=== PATIENT | male | born 1960 | race Caucasian/White ===

== ENCOUNTER 2018-04-05 14:02 | Emergency (ER) | payer BC ==
[2018-04-05] MEDS ORDERED: DIPH/PERTUSS(ACELL)/TETANUS VAC/PF 0.5 ML SYR (>=10YO) IM ONE (14:49)
[2018-04-05] MEDS ORDERED: NORMAL SALINE 1000 ML 1,000 ML IV ONE (14:49)
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
[2018-04-05 15:34] LABS: ABSOLUTE LYMPHOCYTES (AUTO) 1.2 10^3/uL (0.5-4.7); ABSOLUTE MONOCYTES (AUTO) 0.6 10^3/uL (0.1-1.4); ABSOLUTE NEUT (AUTO) 4.3 10^3/uL (1.7-8.2); BASOPHILS % (AUTO) 0.1 % (0-2); EOSINOPHILS % (AUTO) 0.4 % (0-6); HEMATOCRIT 45.1 % (37.9-51.0); HEMOGLOBIN 15.5 g/dL (13.5-17.0); LYMPHOCYTES % (AUTO) 19.2 % (13-45); MEAN CORPUSCULAR HEMOGLOBIN 31.8 pg (27.0-33.4); MEAN CORPUSCULAR HGB CONC 34.4 g/dL (32.0-36.0); MEAN CORPUSCULAR VOLUME 93 fl (80-97); MONOCYTES % (AUTO) 10.4 % (3-13); PLATELET COUNT 144 10^3/uL (150-450); RED BLOOD COUNT 4.87 10^6/uL (4.35-5.55); RED CELL DISTRIBUTION WIDTH 13.1 % (11.5-14.0); SEGMENTED NEUTROPHILS % (AUTO) 69.9 % (42-78); TOTAL CELLS COUNTED % (AUTO) 100 %; WHITE BLOOD COUNT 6.2 10^3/uL (4.0-10.5)
[2018-04-05 15:58] LABS: ALANINE AMINOTRANSFERASE 54 U/L (21-72); ALBUMIN 4.1 g/dL (3.5-5.0); ALKALINE PHOSPHATASE 66 U/L (38-126); ANION GAP 11 (5-19); ASPARTATE AMINO TRANSFERASE 39 U/L (17-59); BILIRUBIN,DIRECT 0.3 mg/dL (0.0-0.4); BILIRUBIN,TOTAL 0.6 mg/dL (0.2-1.3); BLOOD UREA NITROGEN 16 mg/dL (7-20); CALCIUM 9.4 mg/dL (8.4-10.2); CARBON DIOXIDE 25 mmol/L (22-30); CHLORIDE 107 mmol/L (98-107); GLUCOSE 94 mg/dL (75-110); POTASSIUM 3.9 mmol/L (3.6-5.0); TOTAL PROTEIN 6.7 g/dL (6.3-8.2)
[2018-04-05 17:08] VITALS: BP 122/80
--- NOTE | 2018-04-06 08:23 | EKG REPORT ---
SEVERITY:- ABNORMAL ECG - SINUS RHYTHM PROBABLE ANTEROSEPTAL INFARCT, OLD : Confirmed by: Anne Garrido 06-Apr-2018 08:21:50
== END 2018-04-05 16:50 | disposition home or self-care (01) ==
LOC: ER 14:02
DX: S61.216A Laceration without foreign body of right little finger without damage to nail, initial encounter (principal); W45.8XXA Other foreign body or object entering through skin, initial encounter; Y93.89 Activity, other specified; R55 Syncope and collapse; R53.1 Weakness; R61 Generalized hyperhidrosis; K08.89 Other specified disorders of teeth and supporting structures; Z86.14 Personal history of Methicillin resistant Staphylococcus aureus infection; Z23 Encounter for immunization
CPT/HCPCS: 93005; 99283; 96360; 90471; 36415; 82962; 85025; 80053; 84484; 90715; 93010; J7030

== ENCOUNTER → 2019-07-28 | Outpatient (CLI) | payer BC ==
--- NOTE | 2019-07-28 16:28 | RADIOLOGY REPORT (SQ) ---
EXAM DESCRIPTION: CHEST PA/LATERAL COMPLETED DATE/TIME: 07/28/2019 3:46 pm REASON FOR STUDY: COUGH COMPARISON: None. EXAM PARAMETERS: NUMBER OF VIEWS: two views TECHNIQUE: Digital Frontal and Lateral radiographic views of the chest acquired. RADIATION DOSE: NA LIMITATIONS: none FINDINGS: LUNGS AND PLEURA: Mild thickening of the bronchial richter in the right infrahilar region, suggest bronchiectasis. No acute pulmonary consolidation. The left lung is clear. No pneumothorax or pleural effusion. MEDIASTINUM AND HILAR STRUCTURES: No masses or contour abnormalities. HEART AND VASCULAR STRUCTURES: Heart normal size. No evidence for failure. BONES: No acute findings. HARDWARE: None in the chest. OTHER: No other significant finding. IMPRESSION: 1. Mild bronchiectatic changes are suggested in the right infrahilar region. No acute pulmonary consolidation. TECHNICAL DOCUMENTATION: JOB ID: [id number] [employer]- All Rights Reserved Reading location - IP/workstation name: [email or web address]
== END ==
LOC: OD 15:38
PROVIDERS: ATTEND Internal Medicine
DX: R05 Cough (principal)
CPT/HCPCS: 71046

== ENCOUNTER → 2019-09-02 | Outpatient (CLI) | payer BC ==
--- NOTE | 2019-09-02 10:32 | RADIOLOGY REPORT (SQ) ---
EXAM DESCRIPTION: CT CHEST WITH COMPLETED DATE/TIME: 09/02/2019 8:00 am REASON FOR STUDY: COUGH (R05) R05 COUGH COMPARISON: Chest x-ray 07/28/2019 TECHNIQUE: CT scan of the chest performed using helical scanning technique with dynamic intravenous contrast injection. Images reviewed with lung, soft tissue and bone windows. Reconstructed coronal and sagittal MPR and MIP images reviewed. All images stored on PACS. All CT scanners at this facility use dose modulation, iterative reconstruction, and/or weight based d osing when appropriate to reduce radiation dose to as low as reasonably achievable (ALARA). [facility]: Dose Right [facility]: CareDose [facility]: Dose Right [facility]: Teradose 4D [facility]: Appy Pie CONTRAST TYPE AND DOSE: contrast/concentration: Isovue 350.00 mg/ml; Total Contrast Delivered: 80.0 ml; Total Saline Delivered: 55.0 ml RENAL FUNCTION: Creatinine 0.7 RADIATION DOSE: CT Rad equipment meets quality standard of care and radiation dose reduction techniq ues were employed. CTDIvol: 13.8 mGy. DLP: 576 mGy-cm. . LIMITATIONS: None. FINDINGS: LUNGS AND PLEURA: Limited linear atelectasis in the left lower lobe. No acute infiltrate, effusion, or mass. HILAR AND MEDIASTINAL STRUCTURES: No identified masses or abnormal nodes. HEART AND VASCULAR STRUCTURES: No aneurysm or dissection. No central pulmonary emboli. No pericardi al effusion. HARDWARE: None in the chest. UPPER ABDOMEN: Hypoattenuation of the liver. No hepatic mass. THYROID AND OTHER SOFT TISSUES: No masses. No adenopathy. BONES: Bridging osteophytes are seen extensively in the thoracic spine. No osseous lesions. OTHER: No other significant finding. IMPRESSION: 1. No acute finding in the thorax. 2. Hepatic steatosis. 3. Thoracic spondylosis. TECHNICAL DOCUMENTATION: JOB ID: [id number] Quality ID # [id number]: Final reports with documentation of one or more dose reduction techniques (e.g., Au tomated exposure control, adjustment of the mA and/or kV according to patient size, use of iterative reconstruction technique) 2010 [employer]- All Rights Reserved Reading location - IP/workstation name: [email or web address]
== END ==
LOC: RAD 07:28
PROVIDERS: ATTEND Internal Medicine
DX: R05 Cough (principal); M47.894 Other spondylosis, thoracic region; K76.0 Fatty (change of) liver, not elsewhere classified
CPT/HCPCS: 71260; 82565

== ENCOUNTER → 2020-04-27 | Outpatient (CLI) | payer BC ==
--- NOTE | 2020-04-27 12:44 | RADIOLOGY REPORT (SQ) ---
EXAM DESCRIPTION: HIP RIGHT AP/LATERAL IMAGES COMPLETED DATE/TIME: 04/27/2020 10:55 am REASON FOR STUDY: PAIN IN RIGHT HIP (M25.551) M24.672 ANKYLOSIS, LEFT ANKLE M25.551 PAIN IN RIGHT HIP COMPARISON: None. NUMBER OF VIEWS: Two views. TECHNIQUE: AP pelvis and additional frog-leg view of the right hip. LIMITATIONS: None. FINDINGS: MINERALIZATION: Normal. RIGHT HIP: No fracture or dislocation. No worrisome bone lesions. LEFT HIP: No fracture or dislocation. No worrisome bone lesions. PUBIS AND ISCHIUM: No fracture. PELVIS: No fracture. SACRUM: No fracture or dislocation. No worrisome bone lesions. LOWER LUMBAR SPINE: No fracture or dislocation. No worrisome bone lesions. No significant disc disea se. SOFT TISSUES: No findings. OTHER: No other significant finding. IMPRESSION: NEGATIVE STUDY OF THE RIGHT HIP. NO RADIOGRAPHIC EVIDENCE OF ACUTE INJURY. TECHNICAL DOCUMENTATION: JOB ID: [id number] 2010 [employer]- All Rights Reserved Reading location - IP/workstation name: [email or web address]
--- NOTE | 2020-04-27 12:46 | RADIOLOGY REPORT (SQ) ---
EXAM DESCRIPTION: ANKLE LEFT COMPLETE IMAGES COMPLETED DATE/TIME: 04/27/2020 10:54 am REASON FOR STUDY: ANKYLOSIS, LEFT ANKLE (M24.672) M24.672 ANKYLOSIS, LEFT ANKLE M25.551 PAIN IN RI GHT HIP COMPARISON: None. NUMBER OF VIEWS: Three views. TECHNIQUE: AP, lateral, and oblique radiographic images acquired of the left ankle. LIMITATIONS: None. FINDINGS: MINERALIZATION: Normal. BONES: No fracture or dislocation. Plantar and posterior calcaneal spurs. JOINTS: No effusions. SOFT TISSUES: No soft tissue swelling. No foreign body. OTHER: No other significant finding. IMPRESSION: Calcaneal spurs. No acute findings in the left ankle. TECHNICAL DOCUMENTATION: JOB ID: [id number] 2010 [employer]- All Rights Reserved Reading location - IP/workstation name: [email or web address]
== END ==
LOC: RAD 10:23
PROVIDERS: ATTEND Internal Medicine
DX: M24.672 Ankylosis, left ankle (principal); M77.32 Calcaneal spur, left foot; M25.551 Pain in right hip